=== PATIENT | female | born 1975 | race Two or more races ===

== ENCOUNTER 2022-07-06 14:22 | Emergency (ER) | payer MEDICAID, OTHER ==
[~2022-07-06] VITALS: Ht 162.6 cm; Wt 59.0 kg
[2022-07-06 14:49] VITALS: BP 135/75
[2022-07-06] MEDS ORDERED: PROP1DRO OP (15:27)
[2022-07-06] MEDS ORDERED: ERYT5OIN51 OP (15:27)
[2022-07-06 16:35] VITALS: BP 135/75
--- NOTE | 2022-07-06 16:35 | NUR ---
L EYELID SWELLING X 4 DAYS
--- NOTE | 2022-07-06 16:36 | NUR ---
Patient discharged with v/s stable. Written and verbal after care instructions given and explained. Patient alert, oriented and verbalized understanding of instructions. Ambulatory with steady gait. All questions addressed prior to discharge. ID band removed. Patient advised to follow up with PMD. Rx of ERYTHROMICIN BASE, SYSTANE given. Patient educated on indication of medication including possible reaction and side effects. Opportunity to ask questions provided and answered.
== END 2022-07-06 16:35 | disposition home or self-care (01) ==
LOC: MED 14:22
DX: H00.015 Hordeolum externum left lower eyelid (principal); H10.89 Other conjunctivitis; B96.89 Other specified bacterial agents as the cause of diseases classified elsewhere; Z79.899 Other long term (current) drug therapy
CPT/HCPCS: 82948; 99283